=== PATIENT | male | born 1990 | race Caucasian/White ===

== ENCOUNTER 2023-06-20 11:02 | Emergency (ER) | payer MEDICAID ==
[~2023-06-20] VITALS: Ht 172.7 cm; Wt 74.8 kg
[2023-06-20 11:20] VITALS: O2SAT 99
[2023-06-20] MEDS: IBUPROFEN 600MG TABLET PO STA (12:26)
[2023-06-20 13:13] LABS: CLARITY URINE CLEAR (CLEAR); COLOR URINE YELLOW (YELLOW); GLUCOSE URINE NEGATIVE (NEGATIVE); KETONES URINE NEGATIVE (NEGATIVE); LEUKOCYTE ESTERASE URINE TRACE (NEGATIVE); NITRITE URINE NEGATIVE (NEGATIVE); OCCULT BLOOD URINE TRACE (NEGATIVE); PH URINE 6.5 (4.5-8.0); PROTEIN URINE NEGATIVE (NEGATIVE); SPECIFIC GRAVITY URINE 1.007 (1.005-1.030); UROBILINOGEN URINE 0.2 E.U./dL (0.2-1.0)
[2023-06-20 13:56] LABS: SQUAMOUS EPITHELIAL CELL URINE FEW /lpf (RARE/1+)
[2023-06-20 13:57] LABS: BACTERIA URINE TRACE; RBC URINE 0-2 /hpf (0-2)
[2023-06-20] MEDS ORDERED: NITR-87 MT (14:19)
[2023-06-20] MEDS ORDERED: IBUP-2029 MT (14:19)
[2023-06-20 15:09] VITALS: BP 133/94; PULSE 107; RESP 16; TEMP 98.2
== END 2023-06-20 15:10 | disposition home or self-care (01) ==
LOC: ER 11:02
DX: N39.0 Urinary tract infection, site not specified (principal)
CPT/HCPCS: 71045; 81003; 99284

== ENCOUNTER 2024-04-18 14:05 | Emergency (ER) | payer MEDICAID ==
[~2024-04-18] VITALS: Ht 172.7 cm; Wt 79.3 kg
[~2024-04-18 14:05] MED LIST: IBUP-2029 MT; NITR-87 MT
[2024-04-18 14:12] VITALS: O2SAT 98
[2024-04-18 14:52] VITALS: BP 154/114; PULSE 101; RESP 13; TEMP 97.6; O2SAT 96
[2024-04-18] MEDS ORDERED: IBUPROFEN 800MG TABLET PO ONE (16:00)
[2024-04-18] MEDS ORDERED: ACET-3800 MT (16:04)
== END 2024-04-18 17:17 | disposition home or self-care (01) ==
LOC: ER 14:05
DX: J02.9 Acute pharyngitis, unspecified (principal); Z79.899 Other long term (current) drug therapy
CPT/HCPCS: 99282

== ENCOUNTER 2024-06-03 08:57 | Emergency (ER) | payer MEDICAID ==
[~2024-06-03] VITALS: Ht 172.7 cm; Wt 79.0 kg
[~2024-06-03 08:57] MED LIST changes: +ACET-3800 MT
[2024-06-03 09:06] VITALS: BP 149/107; PULSE 103; RESP 16; TEMP 98; O2SAT 100
[2024-06-03] MEDS: FLUORESCEIN SODIUM 1MG/STRIP LEFTEYE ONE (11:08)
[2024-06-03] MEDS: TETRACAINE 0.5% OPHTH DROPS 4ML LEFTEYE ONE (11:08)
[2024-06-03] MEDS ORDERED: OCUFLX EACHEYE (11:20)
== END 2024-06-03 11:36 | disposition home or self-care (01) ==
LOC: ER 08:57
DX: H10.9 Unspecified conjunctivitis (principal); Z98.890 Other specified postprocedural states
CPT/HCPCS: 99283